=== PATIENT | male | born 1970 | race Native Hawaiian/Other Pacific Islander ===

== ENCOUNTER 2016-08-05 17:46 | Emergency (ER) | payer OTHER ==
[~2016-08-05] VITALS: Ht 167.6 cm; Wt 79.4 kg
== END 2016-08-05 20:55 | disposition home or self-care (01) ==
LOC: ED 17:46
PROC: 0HQEXZZ Repair Left Lower Arm Skin, External Approach (ICD-10-PCS; principal; 2016-08-05)
DX: S51.822A Laceration with foreign body of left forearm, initial encounter (principal); W22.8XXA Striking against or struck by other objects, initial encounter; Y92.098 Other place in other non-institutional residence as the place of occurrence of the external cause
CPT/HCPCS: 90715; 96372; 99282; J1170

== ENCOUNTER 2016-08-07 18:37 | Emergency (ER) | payer OTHER ==
[~2016-08-07] VITALS: Ht 167.6 cm; Wt 79.4 kg
== END 2016-08-07 18:52 | disposition home or self-care (01) ==
LOC: ED 18:37
DX: Z04.8 Encounter for examination and observation for other specified reasons (principal)

== ENCOUNTER 2016-08-17 10:14 | Emergency (ER) | payer OTHER ==
[~2016-08-17] VITALS: Ht 167.6 cm; Wt 79.4 kg
== END 2016-08-17 10:45 | disposition home or self-care (01) ==
LOC: ED 10:14
DX: Z48.02 Encounter for removal of sutures (principal)